=== PATIENT | female | born 1985 | race Caucasian/White ===

== ENCOUNTER 2016-06-18 11:08 | Inpatient (IN) | payer BC, OTHER ==
[~2016-06-18 11:08] MED LIST: hydrALAZINE HCL 20 MG/ML VIAL IV PRN
--- OUTSIDE RECORDS SUMMARY | 2016-06-18 11:13 | XMS REPORT | Continuity of Care Document ---
:1985 Author Organization [facility] ([facility]) Address [address] [place] [address] Phone [phone] Care Team Providers Name Role Phone [address] Street Primary Care Provider [phone] Source Comments This disclosure is being made pursuant to the Care Everywhere program, applicable federal and state laws, and may not contain all informaitonavailable regarding this patient.[facility] ([facility]) Active Allergies and Adverse Reactions Allergen Noted Date Severity Reactions Comments Dehydroepiandrosterone Unknown Latex 03/16/2016 Rash [id number] Antimigraine Agents Unknown Current Medications Prescription Sig. Disp. Refills Start Date End Date Status multivitamin Active with minerals PO progesterone Insert 100 mg Active (ENDOMETRIN) 100 mg vaginally 2 times vaginal insert daily. DULoxetine 30 mg XR Take 30 mg by mouth Active capsule daily. labetalol 100 mg tablet Take 100 mg by mouth Active 3 times daily. 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 Pulse 90 03/16/2016 8:30 AM MOBILE APPLICATION TESTER Temperature 36.1 C (97 F) 03/16/2016 8:30 AM MOBILE APPLICATION TESTER Respiratory Rate 16 02/03/2006 8:00 AM CDT Height 1.676 m (5' 5.98") 03/16/2016 8:30 AM MOBILE APPLICATION TESTER Weight 113.7 kg (250 lb 10.6 oz) 03/16/2016 8:30 AM MOBILE APPLICATION TESTER Body Mass Index 40.48 03/16/2016 8:30 AM MOBILE APPLICATION TESTER Oxygen Saturation - - Plan of Care Health Maintenance Due Date Last Done Comments Hepatitis B Vaccine (1 of 3 - Primary Series) 1985 Tdap Vaccine 1997 Cervical Cancer Screening 2004 Lipid Disorder Screening 2004 MMR Vaccine 2004 Td Vaccine 2004 Varicella Vaccine (1 of 2 - Adult - No Evidence of 2004 Immunity) Influenza Vaccine: Seasonal (#1) 11/10/2015 Results from Last 3 Months Not on file
[2016-06-18] MEDS: LABETALOL HCL 100 MG TABLET PO SCH ×2 (11:57→20:15)
[2016-06-18] MEDS ORDERED: LABETALOL HCL 5 MG/ML VIAL IV ONE (17:48)
[2016-06-18] MEDS ORDERED: DEXTROSE 5%-LACTATED RINGERS 1,000 ML IV PRN ×2 (17:49→23:14)
[2016-06-18] MEDS ORDERED: ACETAMINOPHEN 500 MG TABLET PO ONE (17:57)
--- OUTSIDE RECORDS SUMMARY | 2016-06-18 18:03 | XMS REPORT | Continuity of Care Document ---
:1985 Author Organization [facility] ([facility]) Address [address] [place] [address] Phone [phone] Care Team Providers Name Role Phone Heraclio Street Primary Care Provider [phone] Source Comments This disclosure is being made pursuant to the Care Everywhere program, applicable federal and state laws, and may not contain all informaitonavailable regarding this patient.[facility] ([facility]) Active Allergies and Adverse Reactions Allergen Noted Date Severity Reactions Comments Dehydroepiandrosterone Unknown Latex 03/16/2016 Rash [id number] Antimigraine Agents Unknown Current Medications Prescription Sig. 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
[2016-06-18] MEDS ORDERED: RINGERS SOLUTION,LACTATED 1,000 ML IV PRN ×2 (20:52)
[2016-06-18] MEDS ORDERED: OXYTOCIN 20 UNITS in RINGERS SOLUTION,LACTATED 1,000 ML IV ONE (20:52)
[2016-06-18] MEDS ORDERED: MAGNESIUM SULFATE IN WATER 1,000 ML IV PRN (21:39)
[2016-06-18] MEDS ORDERED: MAGNESIUM SULFATE IN WATER 50 ML, MAGNESIUM SULFATE IN WATER 50 ML IV ONE ×2 (21:39)
[2016-06-18] MEDS ORDERED: RINGERS SOLUTION,LACTATED 300 ML IV ONE (21:40)
[2016-06-18] MEDS ORDERED: RINGERS SOLUTION,LACTATED 1,000 ML IV ONE (22:05)
[2016-06-18] MEDS ORDERED: oxyCODONE HCL/ACETAMINOPHEN 1 TAB TABLET PO PRN (23:13)
[2016-06-18] MEDS ORDERED: SENNOSIDES 8.6 MG TABLET PO PRN (23:13)
[2016-06-18] MEDS ORDERED: SIMETHICONE 80 MG TAB.CHEW PO PRN (23:13)
[2016-06-18] MEDS ORDERED: ONDANSETRON HCL/PF 2 MG/ML VIAL IV PRN (23:13)
[2016-06-18] MEDS ORDERED: BISACODYL 10 MG SUPP.RECT RC PRN (23:13)
[2016-06-18] MEDS ORDERED: CALCIUM GLUCONATE 4.65 MEQ/10 ML VIAL IV PRN (23:14)
--- NOTE | 2016-06-18 23:30 | OR ---
Operative Report - Dictated Report Narrative: Indication: 30-year-old 4 para 1112 at 37 2/7 weeks admitted to labor and delivery for chronic hypertension with superimposed preeclampsia with severe features Pre Operative Diagnosis: B7 2/7 week intrauterine , prior section, anxiety disorder, depression, asthma, chronic hypertension with superimposed preeclampsia with severe features, morbid obesity Post Operative Diagnosis: Same. Procedure: Repeat low transverse section. Surgeon: Diana Groves DO Plant Scientist: none Anesthesia: Spinal with duramorph, TAP block Estimated Blood Loss: 200 mL Urine Output: 100 mL clear urine Fluids Replacement: 1400 mL Drains: Gacria to gravity Surgical Complications: None Specimens: Placenta to pathology Findings: Female in cephalic presentation born at 2214 on 06/18/2015 with Apgars 9 and 9, weighing 2532 g. Normal uterus, tubes, ovaries Technique: The patient was taken to the operating room and placed in dorsal supine position with a left lateral tilt. After adequate spinal anesthesia, garcia catheter inserted, SCDs placed, and 2 g of Ancef given preoperatively, the abdominal cavity was entered using sharp and blunt dissection. Two rolled laps were placed in the pericolic gutters on either side of the uterus. A transverse incision was made in the lower uterine segment and extended laterally and upwardly with digital traction. Clear fluid was noted upon amniotomy. The was delivered easily. The cord was clamped and cut and was handed off to awaiting peditrician. The placenta was allowed to deliver spontaneously. The uterus was cleared of clot and debris. Uterine incision was closed with 0 Vicryl using a running stitch. A second imbricating layer was placed. Excellent hemostasis was noted. The rolled laps were removed from the abdominal cavitiy. The peritoneum was closed with a running 3- 0 Monocryl. The same suture was used to approximate the rectus and pyramidalis muscles. The fascia was closed with a running 0 Vicryl. The subcutaneous layer was closed with a running 3-0 Monocryl. The same suture was used to approximate the subdermal layer. The skin was closed with a running 4-0 Monocryl. Exophin adhesive dressing was applied. Sponge, lap, needle, and instrument count were correct x 2. Disposition: To post anesthesia care unit in good condition
[2016-06-18] MEDS ORDERED: NALOXONE HCL 1 MG/1 ML SYRG IV PRN ×2 (23:31)
[2016-06-18] MEDS ORDERED: diphenhydrAMINE HCL 50 MG/ML VIAL IV PRN (23:31)
[2016-06-18] MEDS: MAGNESIUM SULFATE IN WATER 1,000 ML IV PRN (23:45)
[2016-06-19] MEDS ORDERED: hydrALAZINE HCL 20 MG/ML VIAL IV PRN ×2 (00:54→00:58)
[2016-06-19] MEDS ORDERED: HYDROmorphone HCL 2 MG/ML VIAL IV SCH (02:30)
[2016-06-19] MEDS ORDERED: ONDANSETRON HCL/PF 2 MG/ML VIAL IV ONE (02:45)
[2016-06-19] MEDS ORDERED: METOCLOPRAMIDE HCL 5 MG/ML VIAL IV PRN (03:54)
[2016-06-19] MEDS ORDERED: PROMETHAZINE HCL 25 MG in DEXTROSE 5 % IN WATER 50 ML IV ONE ×2 (04:16)
[2016-06-19] MEDS ORDERED: HYDROmorphone HCL 2 MG/ML VIAL IV PRN (05:53)
[2016-06-19] MEDS: ENOXAPARIN SODIUM 40 MG/0.4 ML SYRG SC SCH (07:14)
[2016-06-19] MEDS: DOCUSATE SODIUM 100 MG CAPSULE PO SCH ×2 (09:12→22:15)
[2016-06-19] MEDS: FERROUS SULFATE 325 MG TABLET PO SCH ×2 (09:12→22:15)
[2016-06-19] MEDS: DULoxetine HCL 30 MG CAPSULE.SA PO SCH (09:12)
[2016-06-19] MEDS: PRENATAL VIT#96/FERROUS FUM/FA 1 TAB TABLET PO SCH (09:12)
[2016-06-19] MEDS: LABETALOL HCL 100 MG TABLET PO SCH ×2 (09:12→22:15)
[2016-06-19] MEDS: IBUPROFEN 800 MG TABLET PO PRN ×2 (11:01→22:14)
[2016-06-19] MEDS: oxyCODONE HCL/ACETAMINOPHEN 1 TAB TABLET PO PRN ×2 (11:01→14:55)
--- NOTE | 2016-06-19 12:16 | PN ---
Subjective - Date and Time Seen Date: 06/19/16 Time: 12:16 Subjective Narrative: Patient denies complications related to Duramorph spinal and bilateral ultrasound-guided tap blocks. Pain appears to be well-controlled. Objective - Review of Systems Generalized/Overall Review: Reports: No Symptoms Reported - Vitals Vitals: Last Vital Signs Temp 36.6 C 06/19/16 10:00 Pulse 86 06/19/16 12:00 Resp 16 06/19/16 12:00 BP 117/68 06/19/16 12:00 Pulse Ox 99 06/19/16 12:00 - Exam Constitutional: Present: Alert, Oriented x3, Cooperative, No distress Cauti Physician Documentation - Urinary Catheter Management Uretheral (Fernandez) Date of Insertion: 06/18/16 Time of Insertion: 21:45 Assessment/Plan Plan Narrative: Continue current pain medications as prescribed.
--- NOTE | 2016-06-19 13:12 | PN ---
Subjective - Date and Time Seen Date: 06/19/16 Time: 13:02 Objective - Vitals Vitals: Last Vital Signs Temp 36.6 C 06/19/16 10:00 Pulse 86 06/19/16 12:00 Resp 16 06/19/16 12:00 BP 117/68 06/19/16 12:00 Pulse Ox 99 06/19/16 12:00 Patient denies complaints. Tolerating clears. Bedrest with seizure precautions , SCDs on, receiving Lovenox subcutaneous daily. Pain well controlled. Lochia wnl. Blood pressures all within normal range over the past 7 hours, I/O (6h) = 1665/ 1190 HRRR LCTAB Abdomen - soft, appropriately tender Incision - clean, dry, intact Uterus - firm, at umbilicus -1 No calf tenderness, DTR - 2/4, no clonus Impression: Post op day #1 s/p repeat section. Chronic hypertension with superimposed preeclampsia with severe features, asthma, anxiety, depression , morbid obesity, postop nausea and vomiting from Duramorph resolved Plan: D/C magnesium sulfate tonight after 24 hours if remains stable. D/C Fernandez catheter once magnesium sulfate D/C'd. Plan to advance diet and increased ambulation as quickly as safely possible. Cauti Physician Documentation - Urinary Catheter Management Uretheral (Fernandez) Date of Insertion: 06/18/16 Time of Insertion: 21:45
[2016-06-19] MEDS: MAGNESIUM SULFATE IN WATER 1,000 ML IV PRN (19:48)
[2016-06-20] MEDS: ENOXAPARIN SODIUM 40 MG/0.4 ML SYRG SC SCH (06:34)
[2016-06-20] MEDS: IBUPROFEN 800 MG TABLET PO PRN ×2 (09:55→18:39)
[2016-06-20] MEDS: PRENATAL VIT#96/FERROUS FUM/FA 1 TAB TABLET PO SCH (09:56)
[2016-06-20] MEDS: FERROUS SULFATE 325 MG TABLET PO SCH ×2 (09:56→22:19)
[2016-06-20] MEDS: oxyCODONE HCL/ACETAMINOPHEN 1 TAB TABLET PO PRN ×2 (09:56→22:21)
[2016-06-20] MEDS: DOCUSATE SODIUM 100 MG CAPSULE PO SCH ×2 (09:56→22:19)
[2016-06-20] MEDS: DULoxetine HCL 30 MG CAPSULE.SA PO SCH (09:56)
[2016-06-20] MEDS: LABETALOL HCL 100 MG TABLET PO SCH ×3 (10:13→22:19)
--- NOTE | 2016-06-20 10:33 | PN ---
Subjective - Date and Time Seen Date: 06/20/16 Time: 10:29 Objective - Vitals Vitals: Last Vital Signs Temp 36.5 C 06/20/16 10:00 Pulse 79 06/20/16 10:00 Resp 16 06/20/16 10:00 BP 140/76 06/20/16 10:00 Pulse Ox 96 06/20/16 10:00 Patient denies complaints. Ambulating well. Tolerating regular diet. Pain well controlled. Lochia wnl. Weight down 2 kg. Fluid output doubled intake. Abdomen - soft, appropriately tender Incision - clean, dry, intact Uterus - firm, at umbilicus -2 No calf tenderness Impression: Post op day #2 s/p repeat section. Anemia, asthma - stable, anxiety - controlled, depression - stable, chronic hypertension with superimposed closed preeclampsia - resolving with severe features, morbid obesity Plan: Continue routine post-operative/ care. We'll begin tapering off of antihypertensive medications. Continue to monitor blood pressures closely. Cauti Physician Documentation - Urinary Catheter Management Uretheral (Fernandez) Date of Insertion: 06/18/16 Time of Insertion: 21:45 Date of Removal: 06/20/16 Time of Removal: 02:00
[2016-06-21 06:36] VITALS: BP 145/74
[2016-06-21] MEDS: ENOXAPARIN SODIUM 40 MG/0.4 ML SYRG SC SCH (07:34)
[2016-06-21] MEDS: DOCUSATE SODIUM 100 MG CAPSULE PO SCH ×2 (07:44→08:29)
[2016-06-21] MEDS: LABETALOL HCL 100 MG TABLET PO SCH ×2 (07:44→08:29)
[2016-06-21] MEDS: oxyCODONE HCL/ACETAMINOPHEN 1 TAB TABLET PO PRN (07:45)
[2016-06-21] MEDS: PRENATAL VIT#96/FERROUS FUM/FA 1 TAB TABLET PO SCH ×2 (07:45→08:29)
[2016-06-21] MEDS: DULoxetine HCL 30 MG CAPSULE.SA PO SCH ×2 (07:45→08:29)
[2016-06-21] MEDS: IBUPROFEN 800 MG TABLET PO PRN (07:45)
[2016-06-21] MEDS: FERROUS SULFATE 325 MG TABLET PO SCH ×2 (07:45→08:29)
--- NOTE | 2016-06-21 11:35 | PN ---
Subjective - Date and Time Seen Date: 06/21/16 Time: 11:34 Objective - Vitals Vitals: Last Vital Signs Temp 36.7 C 06/21/16 06:32 Pulse 69 06/21/16 07:44 Resp 16 06/21/16 06:32 BP 145/74 06/21/16 07:44 Pulse Ox 96 06/21/16 06:32 Patient denies complaints. Ambulating without difficulty. Tolerating regular diet. Pain well controlled. Lochia wnl. Abdomen - soft, appropriately tender Incision - clean, dry, intact Uterus - firm, at umbilicus -3 No calf tenderness Impression: Post op day #3 s/p repeat section. Anemia, asthma - stable , anxiety - controlled, depression - stable, chronic hypertension with superimposed closed preeclampsia with severe features - resolving, morbid obesity Plan: Routine discharge instructions with the addition of preeclampsia precautions. Follow-up in 1 wk for incision and BP check. Take labetalol 50mg BID x 5 d then stop. BP check at home BID. Cauti Physician Documentation - Urinary Catheter Management Uretheral (Fernandez) Date of Insertion: 06/18/16 Time of Insertion: 21:45 Date of Removal: 06/20/16 Time of Removal: 02:00
== END 2016-06-21 12:15 | disposition home or self-care (01) | DRG 765 ==
LOC: OBCLINIC 11:08 → OB 17:55
PROVIDERS: ADMIT Obstetrics & Gynecology Gynecologic Oncology; ATTEND Obstetrics & Gynecology
PROC: 4A1HXCZ Monitoring of Products of Conception, Cardiac Rate, External Approach (ICD-10-PCS; 2016-06-18)
PROC: 10D00Z1 Extraction of Products of Conception, Low, Open Approach (ICD-10-PCS; principal; 2016-06-18 21:40)
DX: O10.92 Unspecified pre-existing hypertension complicating childbirth (principal); Z68.41 Body mass index [BMI] 40.0-44.9, adult; O11.4 Pre-existing hypertension with pre-eclampsia, complicating childbirth; O99.02 Anemia complicating childbirth; D50.8 Other iron deficiency anemias; O99.214 Obesity complicating childbirth; E66.01 Morbid (severe) obesity due to excess calories; O34.211 Maternal care for low transverse scar from previous cesarean delivery; Z3A.37 37 weeks gestation of pregnancy; Z37.0 Single live birth

== ENCOUNTER 2016-11-14 08:51 | Emergency (ER) | payer BC, OTHER ==
--- NOTE | 2016-11-14 09:18 | ERNOTE ---
Medical Problem HPI - General Chief Complaint: General Assessment Time Seen by Provider: 11/14/16 09:01 Source: patient Exam Limitations: no limitations - Immun/Allergies/Home Medications Immunizations: IMMUNIZATION HX Immunizations Up to Date Yes History of Influenza Vaccine Yes Hx Pneumococcal Vaccination No Allergies/Adverse Reactions: Allergies eletriptan HBr [From Relpax] Allergy (Mild, Verified 11/14/16 09:00) Nausea increased blood pressure latex Allergy (Mild, Verified 11/14/16 09:00) Hives dihydroergotamine Allergy (Verified 11/14/16 09:00) sumatriptan [From Imitrex] Adverse Reaction (Mild, Verified 11/14/16 09:00) Nausea increased blood pressure sumatriptan succinate [From Imitrex] Adverse Reaction (Mild, Verified 11/14/16 09:00) Nausea increased blood pressure metoclopramide HCl [From Reglan] Adverse Reaction (Verified 11/14/16 09:00) Home Medications: HOME MEDICATIONS DULoxetine HCL [Cymbalta] 30 mg PO DAILY 05/30/13 [Last Taken 06/11/16] Vit#96/Ferrous Fum/FA [ S] 1 tab PO DAILY 04/02/14 [Last Taken 06/11/16] DULoxetine HCL [Cymbalta] 30 mg PO DAILY 11/14/16 [Last Taken Unknown] NIFEdipine [Procardia Xl] 30 mg PO BID 11/14/16 [Last Taken Unknown] - History of Present History Narrative: Here for one day of right sided flank pain and feels really tired. Denies any sleep deprivation Review of Systems - Review of Systems Constitutional: Present: other - patient feels tired. EYE: Present: no symptoms reported ENT: Present: no symptoms reported Respiratory: Present: no symptoms reported Cardiology: Present: no symptoms reported Gastrointestinal/Abdominal: Present: no symptoms reported Genitourinary: Present: no symptoms reported Musculoskeletal: Present: other - she complains of right flank pain for 1 day denies any dysuria Skin: Present: no symptoms reported - Patient's Past Medical History Patient History - Medical: No pertinent hx, Depression Patient History - Cardiac/Respiratory: Hypertension Patient History - Cancer: No Hx of Cancer Patient History - Surgical Procedures: , T & A Patient History - Other: None LMP (females 10-50): unknown - Social History Living Situations: spouse Abuse History: No History of abuse Psych History: Hx of Anxiety, Hx of Depression, Current tx/ever been on anti- depressants or anti-anxiety meds Smoking Status: Never smoker Have you smoked in the past 12 months: No Do you dip or chew tobacco: No Alcohol Use: none Drug Use: none - Immunizations Immunizations Up to Date: Yes Hx Pneumococcal Vaccination: No History of Influenza Vaccine: Yes Physical Exam - Physical Exam General Appearance: Present: wd/wn, sleeping/easy to arouse Head Exam: Present: normal inspection, no evidence of injury Eye Exam: Normal inspection: bilateral, PERRL: bilateral, EOMI: bilateral Ears, Nose, Throat: Present: normal ENT inspection, normal pharynx Neck: Present: normal inspection, nontender, supple Respiratory: Present: no respiratory distress, normal breath sounds, no accessory muscle use, chest nontender, lungs clear Cardiovascular/Chest: Present: regular rate, rhythm, no murmur, normal peripheral pulses Extremity Exam: Present: normal inspection, normal range of motion Neurological Exam: Present: alert, oriented, normal mood/affect, other - patient is somnolent however when I speak to her strongly she wakes up sits up and is able to have a coherent conversation she does not slur her speech she has no abnormal feces she is neurologically intact. ED Progress - Results and Orders Patient's Lab Results:: I have reviewed the patient's lab results. - Vital Signs Patient's Vital Signs:: I have reviewed the patient's vital signs. Vital Signs: Vital Signs 11/14/16 11/14/16 08:54 09:06 Temperature 36.3 C L Pulse Rate 78 86 Respiratory 14 14 Rate Blood Pressure 166/97 166/97 O2 Sat by Pulse 100 100 Oximetry - Progress/Reassessment Chief Complaint: General Assessment Plan - Plan Plan: This patient originally presented for increased somnolence and right-sided flank pain subsequently the patient's workup is completely negative I have discussed the patient's fatigue status without any acute readily diagnosable pathology with the patient. At this time the patient stated to me "I'm just tired I need to sleep I don't know why he called the ambulance" patient states that she is comfortable going home and sleeping as she is just tired. Patient is stable and appropriate without any pathological diagnoses to go home and sleep her diagnosis is fatigue Departure - Departure Clinical Impression: Fatigue Qualifiers: Fatigue type: unspecified Qualified Code(s): R53.83 - Other fatigue Disposition: Home self-care Condition: Good Instructions: Fatigue Referrals: Harman Luque MD [Primary Care Provider] -
[2016-11-14 09:22] LABS: Hematocrit 40.4 % (37.0-47.0); Hemoglobin 13.4 gm/dL (12.5-16.0); Mean Cell Volume 80.3 fl (78-100); Mean Corpuscular Hemoglobin 26.6 pg (27-31); Mean Corpuscular Hgb Conc 33.2 g/dl (32-36); Mean Platelet Volume 8.9 fl (6.0-9.5); Neutrophil # 5.5 K/mm3 (1.3-6.0); Platelet Count 280 K/mm3 (150-450); Red Blood Count 5.03 M/mm3 (4.2-5.4); Red Cell Distribution Width 13.3 % (11.5-14.0); White Blood Count 8.4 K/mm3 (4.0-10.5)
[2016-11-14 09:30] LABS: Urine Bilirubin Negative (NEGATIVE); Urine Blood Negative /ul (NEGATIVE); Urine Ketone Negative (NEGATIVE); Urine Nitrite Negative (NEGATIVE); Urine Protein Negative (NEGATIVE); Urine Urobilinogen Normal (NORMAL); Urine pH 6.5 pH (5.0-7.0)
[2016-11-14 09:37] LABS: ALT 107 U/L (19-67); AST 39 U/L (0-48); Albumin * 3.6 gm/dl (3.4-5.0); Alkaline Phosphatase * 82 U/L (50-170); Anion Gap 16.6 mmol/L (6.8-13.8); BUN/Creatinine Ratio 14.8 (9.0-21.6); Bilirubin, Total 0.4 mg/dL (0.0-1.1); Blood Urea Nitrogen 13 mg/dL (3-23); CRP 0.9 mg/dL (0.0-0.9); Ca. Corrected For Albumin 8.6 mg/dL (8.4-10.2); Calcium * 8.6 mg/dL (7.9-10.9); Carbon Dioxide 26.1 mmol/L (24-32.6); Chloride 104 mmol/L (97-106); Glucose * 114 mg/dL (70-110); Potassium 3.7 mmol/L (3.4-4.6); Sodium 143 mmol/L (132-142); Total Protein 7.1 gm/dL (6.2-8.2)
[2016-11-14 09:47] LABS: Cocaine Ur Negative (NEGATIVE); Urine Barbiturate Negative (NEGATIVE); Urine Benzodiazepines Negative (NEGATIVE); Urine Opiates Negative (NEGATIVE); Urine PCP Negative (NEGATIVE); Urine THC Negative (NEGATIVE)
[2016-11-14 09:55] LABS: Urine Appearance Clear; Urine Bacteria None Seen; Urine Color Yellow; Urine Hyaline Cast 0-5 /LPF; Urine RBC None Seen /hpf (0-5); Urine WBC None Seen /hpf (0-5)
[2016-11-14] MEDS ORDERED: NIFEdipine 30 MG TAB.SR.24H PO ONE ×2 (10:32→10:34)
[2016-11-14 10:35] VITALS: BP 134/85
== END 2016-11-14 10:50 | disposition home or self-care (01) ==
LOC: ER 08:51
DX: R53.83 Other fatigue (principal); I10 Essential (primary) hypertension
CPT/HCPCS: 36415; 36600; 70450; 80053; 80307; 81001; 82803; 84443; 85025; 86140; 99282; G0481